=== PATIENT | female | born 1990 | race African-American/Black ===

== ENCOUNTER 2020-07-26 21:27 | Day surgery (SDC) | payer MEDICAID ==
[~2020-07-26] VITALS: Ht 162.6 cm; Wt 99.8 kg
[2020-07-26 23:50] LABS: Basophils # (auto) 0 10 ^3/uL (0-0.2); Basophils % (auto) 0.4 % (0.0-2.0); Eosinophils # (auto) 0 10 ^3/uL (0-0.8); Eosinophils % (auto) 0.2 % (0.0-7.0); Hematocrit 32.7 % (36.0-46.0); Hemoglobin 10.8 g/dL (12.2-16.2); Lymphocytes # (auto) 1.2 10 ^3/uL (0.4-5.4); Mean Corpuscular Hemoglobin 28.3 pg (28.0-32.0); Mean Corpuscular Volume 85.9 fL (80.0-100.0); Monocytes # (auto) 0.6 10 ^3/uL (0-1.3); Monocytes % (auto) 5.3 % (0.0-12.0); Neutrophils % (auto) 83.1 % (37.0-80.0); Platelet Count (auto) 300 10^3/uL (140-450); Red Blood Cells 3.81 10^6/uL (4.0-5.20); Red Cell Distribution Width 17.9 % (11.8-14.3); White Blood Cell 10.9 10^3/uL (4.4-10.8)
[2020-07-27 00:15] LABS: Calcium 8.6 mg/dL (8.5-10.1); Potassium 3.3 mmol/L (3.5-5.1)
[2020-07-27 00:18] LABS: Albumin 3.2 g/dL (3.4-5.0); BUN/Creatinine Ratio 9.6
[2020-07-27 00:21] LABS: Bilirubin, Total 0.2 mg/dL (0.2-1.0); Total Protein 6.8 g/dL (6.4-8.2)
[2020-07-27 00:35] LABS: Partial Thromboplastin Time 25.4 sec (23.0-31.2)
[2020-07-27] MEDS ORDERED: ONDANSETRON HCL 4 MG/2 ML VIAL IV ONE (00:45)
[2020-07-27] MEDS ORDERED: MORPHINE SULFATE 4 MG/ML SYR/VIAL IV ONE (00:45)
[2020-07-27] MEDS ORDERED: SODIUM CHLORIDE 0.9% 1,000 ML IV ONE (01:00)
[2020-07-27 01:31] LABS: Urine Amorphous Crystal FEW /hpf (None Seen); Urine Bacteria FEW /hpf (None Seen); Urine Blood 2+ /uL (Negative); Urine Mucus FEW (None Seen); Urine Specific Gravity 1.025 (1.001-1.035); Urine WBC 11 /hpf (0 - 5)
[2020-07-27] MEDS ORDERED: cefTRIAXone 1GM/50ML D5W 50 ML IV ONE (02:15)
[2020-07-27] MEDS ORDERED: METHYLERGONOVINE MALEATE 0.2 MG/ML AMP IM ONE (02:15)
[2020-07-27] MEDS ORDERED: fentaNYL CITRATE 100 MCG/2 ML VL ONE (13:08)
[2020-07-27] MEDS ORDERED: SODIUM CHLORIDE LOCK 10 ML ONE (13:08)
[2020-07-27] MEDS ORDERED: MIDAZOLAM HCL 1MG/1ML-2 ML VIAL ONE (13:08)
[2020-07-27] MEDS ORDERED: ONDANSETRON HCL 4 MG/2 ML VIAL ONE (13:08)
[2020-07-27] MEDS ORDERED: PROPOFOL 10 MG/ML 20 ML IV ONE (13:09)
[2020-07-27] MEDS ORDERED: METOCLOPRAMIDE HCL 5MG/ml INJ 2ml VIAL IV PRN (13:15)
[2020-07-27] MEDS ORDERED: MORPHINE SULFATE 4 MG/ML SYR/VIAL IV PRN (13:15)
[2020-07-27] MEDS ORDERED: HYDROmorphone HCL 2 MG/ML VL IV PRN (13:15)
[2020-07-27] MEDS ORDERED: ceFAZolin 1GM/50ML 100 ML IV ONE (13:22)
[2020-07-27] MEDS ORDERED: OXYTOCIN 10UNIT/ML 1ML VIAL ONE (13:45)
[2020-07-27] MEDS ORDERED: LACTATED RINGER'S 1,000 ML IV SCH (14:00)
[2020-07-27] MEDS ORDERED: ONDANSETRON HCL 4 MG/2 ML VIAL IV PRN (14:00)
[2020-07-27 14:31] VITALS: BP 121/79
== END 2020-07-27 15:00 | disposition home or self-care (01) ==
LOC: EDBD 21:27 → EDUNIT# 21:27 → ER 21:30 → SUR 21:31 → ER 07-27 11:55 → SUR 07-27 15:00
PROVIDERS: ATTEND Specialist
DX: N93.9 Abnormal uterine and vaginal bleeding, unspecified (principal); O03.4 Incomplete spontaneous abortion without complication; D64.9 Anemia, unspecified; F17.200 Nicotine dependence, unspecified, uncomplicated; Z68.38 Body mass index [BMI] 38.0-38.9, adult
CPT/HCPCS: 36415; 59812; 76856; 80053; 81001; 84702; 85025; 85610; 85730; 86850; 86900; 86901; 88305; J0690; J0696; J2210; J2250; J2270; J2405; J2590; J2704; J3010; J7030